=== PATIENT | female | born 1975 | race Caucasian/White ===

== ENCOUNTER 2017-01-12 08:56 | Emergency (ER) | payer BC ==
--- NOTE | 2017-01-12 09:27 | EDM.PDOC ---
ED HPI GENERAL MEDICAL PROBLEM - General Chief Complaint: Laceration Stated Complaint: ER Time Seen by Provider: 01/12/17 09:12 Source of Information: Reports: Patient History Limitations: Reports: No Limitations - History of Present Illness INITIAL COMMENTS - FREE TEXT/NARRATIVE: Pt was climbing out a a semi when her index finger on her right had got caught on something sharp causing a 1 inch laceration with bleeding. Pt denies any dizziness, numbness, tingling, or difficulty moving the finger. Onset: Today Duration: Constant Location: Reports: Upper Extremity, Right Quality: Reports: Stabbing Severity: Moderate Improves with: Reports: Immobilization Worsens with: Reports: Movement Associated Symptoms: Reports: No Other Symptoms Treatments [employer]: Reports: Splint(s) Right Hand Pain Score (Numeric/FACES): 4 - Related Data Allergies Allergy/AdvReac Type Severity Reaction Status Date / Time No Known Allergies Allergy Verified 01/12/17 09:12 Home Meds: Home Meds Meloxicam [Meloxicam] 7.5 mg PO DAILY 01/12/17 [History] ED ROS GENERAL - Review of Systems Review Of Systems: See Below Constitutional: Reports: No Symptoms HEENT: Reports: No Symptoms Respiratory: Reports: No Symptoms Cardiovascular: Reports: No Symptoms Skin: Reports: No Symptoms (bleeding and laceration to the right index finger ) Neurological: Reports: No Symptoms ED EXAM, SKIN/RASH Exam: See Below Exam Limited By: No Limitations General Appearance: Alert, WD/WN, No Apparent Distress Respiratory/Chest: No Respiratory Distress, No Accessory Muscle Use Cardiovascular: Normal Peripheral Pulses Extremities: Normal Inspection, Normal Range of Motion, Non-Tender, No Pedal Edema, Normal Capillary Refill Neurological: Alert, Oriented, CN II-XII Intact, Normal Cognition, Normal Gait Psychiatric: Normal Affect, Normal Mood Skin: Warm, Dry, Normal Color, No Rash Location, Skin: Upper Extremity, Right, Other (1 inch laceration right above the first joint of the right index finger, deep tissue laceration. No tendons noted, wound bed clean without debri, minor bleeding controlled with manual pressure ) ED SKIN PROCEDURES - Laceration/Wound Repair Right Finger Lac/Wound length In cm: 2.5 Appearance: Subcutaneous, Linear, Irregular, Clean Distal NVT: Neuro & Vascular Intact, No Tendon Injury Anesthetic Type: Local Local Anesthesia - Lidocaine (Xylocaine): 1% Plain Local Anesthetic Volume: 4cc Skin Prep: Providone-Iodine (Betadine), Saline Exploration/Debridement/Repair: Wound Explored, Explored to Base, No Foreign Material Found Closed with: Sutures Suture Size: other (6-0) # of Sutures: 7 Suture Type: Simple, Other (Ethylon) Course - Vital Signs Last Recorded V/S: Last Vital Signs Temp 35.9 C 01/12/17 09:00 Pulse 64 01/12/17 09:00 Resp 18 01/12/17 09:00 BP 119/45 L 01/12/17 09:00 Pulse Ox 98 01/12/17 09:00 - Orders/Labs/Meds Meds: Medications Discontinued Medications Generic Name Dose Route Start Last Admin Trade Name Jia PRN Reason Stop Dose Admin Lidocaine HCl 5 ml 01/12/17 09:12 01/12/17 09:18 Xylocaine-Mpf 1% INJECT 01/12/17 09:13 5 ml ONETIME ONE Administration Departure - Departure Time of Disposition: 09:44 Disposition: Home, Self-Care 01 Condition: Good Clinical Impression: Laceration - Discharge Information Instructions: Laceration Care, Adult, [id number] Referrals: Diana Sebastian, [Primary Care Provider] - Forms: ED Department Discharge Additional Instructions: Keep the area clean and dry. Follow in 10 days to have your sutures removed seek attention if any signs of infection arise
== END 2017-01-12 09:58 | disposition home or self-care (01) ==
LOC: VM.ED 08:56
DX: S61.210A Laceration without foreign body of right index finger without damage to nail, initial encounter (principal); Z79.899 Other long term (current) drug therapy; W26.8XXA Contact with other sharp object(s), not elsewhere classified, initial encounter
CPT/HCPCS: 12001; 99283

== ENCOUNTER 2021-09-01 08:31 | Day surgery (SDC) | payer BC ==
[~2021-09-01 08:31] MED LIST: Lactated Ringers 1,000 ML IV SCH
[2021-09-01] MEDS ORDERED: fentaNYL 100 MCG/2 ML SDV ONE (09:42)
[2021-09-01] MEDS ORDERED: Propofol 200 MG/20 ML SDV ONE (09:42)
== END 2021-09-01 12:43 | disposition home or self-care (01) ==
LOC: VM.SDS 08:31
PROVIDERS: ATTEND Student in an Organized Health Care Education/Training Program
DX: Z12.11 Encounter for screening for malignant neoplasm of colon (principal); M54.42 Lumbago with sciatica, left side; M54.41 Lumbago with sciatica, right side; G43.909 Migraine, unspecified, not intractable, without status migrainosus; Z88.8 Allergy status to other drugs, medicaments and biological substances; Z90.49 Acquired absence of other specified parts of digestive tract; Z79.899 Other long term (current) drug therapy
CPT/HCPCS: 00812; J2704; J3010; J7120